=== PATIENT | female | born 1995 | race Two or more races ===

== ENCOUNTER 2020-10-23 20:49 | Emergency (ER) | payer MEDICAID ==
[~2020-10-23] VITALS: Ht 162.6 cm; Wt 77.1 kg
[2020-10-24 01:50] VITALS: BP 126/99
[2020-10-24] MEDS ORDERED: LIDOCAINE 1% HCL (LOCAL ANESTH.) INJ 20ML MDV IJ ONE (03:30)
== END 2020-10-24 04:19 | disposition home or self-care (01) ==
LOC: ER 20:52
DX: S61.412A Laceration without foreign body of left hand, initial encounter (principal); W26.0XXA Contact with knife, initial encounter; Y93.89 Activity, other specified; Y92.89 Other specified places as the place of occurrence of the external cause; Y99.8 Other external cause status
CPT/HCPCS: 12002; 73120; 81002; 81025; 99283; J2001

== ENCOUNTER 2023-01-08 05:56 | Emergency (ER) | payer MEDICAID ==
[~2023-01-08] VITALS: Ht 162.6 cm; Wt 84.4 kg
[2023-01-08 06:53] VITALS: BP 129/77
== END 2023-01-08 07:13 | disposition home or self-care (01) ==
LOC: ER 05:56
DX: H57.11 Ocular pain, right eye (principal)